=== PATIENT | female | born 1975 | race Caucasian/White ===

== ENCOUNTER → 2023-12-19 15:39 | Outpatient (REF) | payer OTHER, SELFPAY | LOC: WDC 15:39 | PROVIDERS: ATTENDING PHYSICIAN Family Medicine | DX: Z12.31 Encounter for screening mammogram for malignant neoplasm of breast (principal) | CPT/HCPCS: 77063; 77067 ==

== ENCOUNTER 2025-02-22 20:47 | Observation (INO) | payer OTHER, SELFPAY ==
[2025-02-22] VITALS (15 sets, daily range): BP systolic 106–141; BP diastolic 64–94; BMI 28.3; BMI 28.0
[2025-02-22 10:35] LABS: % Basophils 1.2 % (0-2); % Eosinophils 2.6 % (0-6); % Immature Granulocytes 0.3 % (0-0.5); % Lymphocytes 19.9 % (20.5-51.1); % Monocytes 6.9 % (1.7-9.3); % Neutrophils 69.1 % (42.2-75.2); Absolute Basophils 0.1 10^3/uL (0-0.2); Absolute Eosinophils 0.2 10^3/uL (0-0.7); Absolute Lymphocytes 1.2 10^3/uL (1.2-3.4); Absolute Monocytes 0.4 10^3/uL (0.1-0.6); Absolute Neutrophils 4.2 10^3/uL (1.4-6.5); Hemoglobin 14.7 g/dL (12.0-16.0); Mean Corpuscular Hgb 31.6 pg (27.0-31.0); Mean Corpuscular Volume 90.3 fL (81.0-99.0); Mean Platelet Volume 10.6 fL (7.4-10.4); Nucleated Red Blood Cells % 0 %; Platelet Count 214 10^3/uL (130-400); Red Blood Cell Count 4.65 10^6/uL (4.20-5.40); Red Cell Dist. Width 11.9 % (11.5-14.5); White Blood Cell Count 6.1 10^3/uL (4.8-10.8)
[2025-02-22 10:59] LABS: ALT (SGPT) 19 U/L (0-35); AST (SGOT) 25 U/L (14-36); Albumin 4.7 g/dl (3.5-5.0); Alkaline Phosphatase 43 U/L (38-126); Blood Urea Nitrogen 13 mg/dl (7-17); Calcium 10.3 mg/dl (8.4-10.2); Carbon Dioxide 25 mmol/L (22-30); Chloride 107 mmol/L (98-107); Glucose 127 mg/dl (70-99); Lipase 107 U/L (23-300); Potassium 4.4 mmol/L (3.5-5.1); Sodium 140 mmol/L (135-145); Total Bilirubin 0.6 mg/dl (0.2-1.3); Total Protein 7.6 g/dl (6.3-8.2); eGFR > 60.00
--- NOTE | 2025-02-22 12:08 | ED.GENMED ---
Addendum entered and electronically signed by Celine Chris NP 02/22/25 21:44:
CT report reviewed. Acute mild appendicitis. Dr. Mtz notified. Will admit to his service. NPO after midnight. IV zosyn started in dept. VSS, she remains afebrile. CT findings and plan discussed with patient, agreeable to plan.
Original Note:
History of Present Illness
General
Chief Complaint: Abdominal Pain
Source: patient
Exam Limitations: none
Time Seen by Provider: 02/22/25 11:10
Nursing documentation reviewed up to this point in time: agreed with
History of Present Illness
History of Present Illness:
49-year-old female asthmatic anxiety presents with
Phy Exam
Physical Exam
Physical Exam:
Physical Exam
General: no apparent distress, not acutely ill
Neck: No jaundice
Heart: s1/s2 regular rate and rhythm, no murmur. equal radial pulses.
Lungs: no acute respiratory distress. clear bilaterally
Abdomen: Mild epigastric and right upper quadrant
Neuro: alert and oriented. no focal neurological deficits
Skin: no rash
Psychiatric: well kept. interactive and cooperative
Extremities: no edema.
Course
Orders/Labs/Results
Orders:
Orders
02/22/25 10:22
Complete Blood Count/With Diff Urgent
Comprehensive Metabolic Panel Urgent
Lipase Urgent
02/22/25 11:33
Electrocardiogram (*1) Urgent
Reason for Study: Abdominal Pain
EKG- Treatment ONCE
0.9% Sodium Chloride 1000 ml [Nss] 1,000 ml IV BOLUS
Ketorolac [Toradol] 30 mg IV NOW STA
Ondansetron Injectable [Zofran] 4 mg IV NOW STA
US Abdomen Complete/Upper Urgent
Comment:
Reason For Exam: ruq pain
02/22/25 11:54
Troponin I Urgent
02/22/25 12:07
Urinalysis Reflex To Culture Urgent
Date Specimen was Collected: 02/22/25
Time Specimen was Collected: 11:56
02/22/25 14:12
CT Abd/pelvis W Iv Cont Urgent
Comment:
Reason For Exam: rlq pain
Abnormal Lab Results
02/22/25
10:22
MCH 31.6 H pg
(27.0-31.0)
MPV 10.6 H fL
(7.4-10.4)
Lymphocytes % 19.9 L %
(20.5-51.1)
Glucose 127 H mg/dl
(70-99)
Calcium 10.3 H mg/dl
(8.4-10.2)
02/22/25 10:22
02/22/25 10:22
Vital Signs
Initial and Last Documented VS:
Initial Vital Signs
Temp Pulse Resp BP Pulse Ox
98.2 F 95 16 137/94 100
02/22/25 09:59 02/22/25 09:59 02/22/25 09:59 02/22/25 09:59 02/22/25 09:59
Last Documented Vital Signs
Temp Pulse Resp BP Pulse Ox
98.5 F 82 12 136/81 99
02/22/25 12:08 02/22/25 12:08 02/22/25 12:08 02/22/25 12:08 02/22/25 12:08
MDM/Problems Addressed
Differential Diagnosis Includes:
Biliary colic pancreatitis ACS muscle strain doubt appendicitis
MDM/Problems Addressed:
Abdominal
*Radiology
Radiology exam reviewed: preliminary read by ED provider and radiology read reviewed
*EKG
Interpreted by ED Provider?: Yes
Interpretation: normal
Comparison EKG: no comparison EKG present
Heart Rate: 78
Rate: normal
Rhythm: sinus
QRS Pattern: normal QRS
Ischemia: non-specific ST changes
*Fire Boss Interpretation
Rate: normal
Interpretation: normal
Heart Rate: 78
Rhythm: sinus
*Critical Care Note
Total Time (30-74mins, 75-104mins- exclusive of procedures): Not Applicable
Update Note
Update Note:
215p--update EKG noted labs noted ultrasound noted patient still with some pain in the right abdomen perhaps a bit lower than it was earlier will check CT scan with IV contrast to rule out colitis, appendicitis or any other intra-abdominal pathology
did discuss with patient shared decision making, her scan may be negative
ED Attending Note
-
Portions of this chart may have been created with voice recognition software.� Occasional wrong word or��sound alike� substitutions may have occurred due to the inherent limitations of voice recognition software.
Discharge Plan
Departure
Prescriptions:
No Action
Albuterol Sulfate Hfa
1 - 2 inh inhalation Q4HPRN PRN (Reason: SOB)
paroxetine HCl [Paxil] 30 MG tablet
30 mg PO DAILY
aspirin 81 MG tablet,chewable
81 mg PO DAILY Qty: 14 0RF
Rx Instructions:
Take 81 mg daily for 14 days
Referrals:
Tianna Bledsoe PA [Family Provider, Family Practice]
Interventions
Interventions:
*Risk Screen - Suicide Last Done: 02/22/25 12:08
*General Assessment Last Done: 02/22/25 12:08
*Neglect/Abuse Screening Last Done: 02/22/25 12:08
*ED- Fall Risk Assessment Last Done: 02/22/25 12:08
*ED COVID-19 Vaccine History Last Done: 02/22/25 12:08
HA-Qhepuo-Gsocnjntax Assessment Last Done: 02/22/25 12:08
Discharge Date and Time
Print Language: MACEDONIAN
[2025-02-22 12:17] LABS: Urine Albumin Negative (Neg - Trace); Urine Bilirubin Negative (Negative); Urine Character Clear (Clear); Urine Color Yellow; Urine Glucose Negative (Negative); Urine Ketone Negative (Negative); Urine Leukocyte Negative (Negative); Urine Nitrite Negative (Negative); Urine Occult Blood Negative (Negative); Urine Specific Gravity 1.015 (<1.030); Urine Urobilinogen Negative (Neg - 1+)
[2025-02-22 12:57] LABS: Troponin I < 0.012 ng/ml
[2025-02-22] MEDS: ZOSYN 50 IV (17:08)
[2025-02-22] MEDS: ZOFRAN 4 MG IV (17:08)
[2025-02-22] MEDS: DILAUDID 0.5 MG IV ×2 (17:09→22:06)
--- NOTE | 2025-02-22 20:23 | HPS.HSE ---
Addendum entered and electronically signed by Gianluca Negro MD 02/23/25 08:12:
I saw and examined the patient independently.
The [employer] Machine Tender's note was reviewed and I agree with the note, assessment and plan except where noted below.
Comment: This is a 49-year-old female who presents with a 1 day history of umbilical then right lower quadrant abdominal pain. Exam, imaging, blood work all consistent with acute appendicitis.
Will plan for a laparoscopic appendectomy in the OR today.
N.p.o., IV fluids, IV antibiotics.
Risks/Benefits/Alternatives, expected postoperative course and possible complications (bleeding, infection, injury to surrounding structures, acute/chronic pain) discussed at length. Patient wishes to proceed with surgery. All questions answered.
Consent obtained.
I spent 60 minutes in total for the care of this patient today including direct patient care and counseling, reviewing labs, imaging, coordination of care, as well as documentation.
Original Note:
Family Physician
-
Family Physician: Tianna Bledsoe
Chief Complaint
-
Abdominal pain
History of Present Illness
Patient is a 49 year old female with a past medical history significant for Asthma (post Covid) and anxiety, who presents to the emergency department with abdominal pain. Patient states that the abdominal pain started yesterday afternoon and was
accompanied by slight nausea. The pain was severe overnight and she was unable to sleep during the night. She has had a poor appetite and little oral intake. Patient denies fever, chest pain, SOB, dizziness, weakness, or lightheadedness.
In the emergency department, labs unremarkable, vital signs stable, patient afebrile.
EKG shows NSR, HR 88.
Abdomen ultrasound showed: No sonographic evidence for an acute abnormality of the abdomen.
Abdomen/Pelvis CT showed: Mild acute appendicitis. No CT evidence for perforation or periappendiceal abscess.
Emergency provider discussed with Dr. Mtz, General surgery who is accepting the patient to his service for possible OR. Patient admitted to General Surgery. Plan: NPO, IV antibiotics, pain management and antiemetics.
Medical History
Past Medical History
Past Medical History: Reports Asthma (Post COVID) and Psychiatric (Anxiety)
Past Surgical History: Reports None
Social History
Tobacco: Non-smoker
Alcohol: Occasional
Drug: None
Personal:
Living: With Family
Family History
Family History: Not pertinent
Allergies / Home Medications
Allergies reflects when Allergies were last updated in [facility].
Home Medications with original date entered in [facility]
Allergy/Medication List:
Patient Allergies
Allergy/AdvReac Type Severity Reaction Status Date / Time
No Known Allergies Allergy Verified 02/22/25 09:59
Home Medications
�Medication �Instructions �Recorded
Albuterol Sulfate Hfa 1 - 2 inh inhalation Q4HPRN PRN SOB 12/10/20
paroxetine HCl 30 mg tablet (Paxil) 30 mg PO DAILY 12/10/20
Review of Systems
-
History Source: Patient
Constitutional: Reports Sleep Disturbance (Unable to sleep overnight due to abdominal pain)
EENT: Reports No Symptoms
Respiratory: Reports No Symptoms
Cardiac: Reports No Symptoms
Abdomen/GI: Reports Abdominal Pain and Nausea
: Reports No Symptoms
Musculoskeletal: Reports No Symptoms
Skin: Reports No Symptoms
Neurological: Reports No Symptoms
Endocrine: Reports No Symptoms
Hematologic/Lymphatic: Reports No Symptoms
Psych: Reports Calm
Physical Exam
Vital Signs
Vital Signs
Temp Pulse Resp BP Pulse Ox
98.5 F 82 12 124/91 99
02/22/25 12:08 02/22/25 19:15 02/22/25 19:15 02/22/25 19:00 02/22/25 19:22
Physical Exam
General: No Apparent Distress, Comfortable, Conversant and Poor Appetite
HEENT: Moist mucous membranes and PERRLA
Respiratory: Clear and Non Labored Respirations
Cardiac: S1/S2 and Regular Rhythm
GI: Soft, Non Distended, Normal Bowel Sounds and Tender (TTP, right lower quadrant)
Skin: Warm and Dry; No Jaundice
Neuro: Awake, Alert and Oriented
Psych: Calm and Intact Judgment/Insight
Laboratory Results
-
02/22/25 10:22
02/22/25 10:22
Laboratory Results
Total Bilirubin 0.6 mg/dl (0.2-1.3) 02/22/25 10:22
AST 25 U/L (14-36) 02/22/25 10:22
ALT 19 U/L (0-35) 02/22/25 10:22
Alkaline Phosphatase 43 U/L (38-126) 02/22/25 10:22
Troponin I < 0.012 ng/ml 02/22/25 11:54
Lipase 107 U/L (23-300) 02/22/25 10:22
Data Reviewed
-
CT Scan: Report Reviewed by me
Ultrasound: Report Reviewed by me
Lab Data: Labs Reviewed by me
Impression/Plan
-
IMPRESSION:
Patient is a 49 year old female with a past medical history significant for Asthma (post Covid) and anxiety, who presents to the emergency department with abdominal pain.
PLAN:
Acute Appendicitis
- CT Abd/Pelvis shows: Mild acute appendicitis. No CT evidence for perforation or periappendiceal abscess.
- Admit to General Surgery, Dr. Mtz
- NPO @ midnight, IV fluids: NSS 100 mls/hr
- IV antibiotics: Zosyn 3.375 g IV Q6H
- Pain medications, antiemetics
Anxiety
- Continue home medication: Paroxetine 30 mg daily
DVT prophylaxis: SCD/Teds pre op
Code Status: Full code
[2025-02-22] MEDS: NSS 1000 IV (22:08)
--- NOTE | 2025-02-22 22:15 | PTCARENOTE ---
Pt. admitted to 2S from ED via stretcher and able to walk to room bed with steady gait. In NAD but states her pain is starting to increase, even and unlabored breathing on RA, VSS, and a bit anxious about having surgery. All questions and concerns
addressed at time of assessment. Side rails in place, bed locked and in lowest position, and call robbins within reach.
[2025-02-23] MEDS: ZOSYN 50 IV ×3 (00:07→13:01)
[2025-02-23] MEDS: ZOFRAN 4 MG IV (00:09)
[2025-02-23] MEDS: DILAUDID 0.5 MG IV ×2 (00:10→10:35)
[2025-02-23] MEDS: TYLENOL 650 MG PO (06:40)
[2025-02-23 07:13] LABS: Hematocrit 42.6 % (37.0-47.0); Hemoglobin 14.7 g/dL (12.0-16.0); Mean Corp Hgb Conc. 34.5 g/dL (33.0-37.0); Mean Corpuscular Hgb 31.7 pg (27.0-31.0); Mean Platelet Volume 10.9 fL (7.4-10.4); Platelet Count 216 10^3/uL (130-400); Red Blood Cell Count 4.63 10^6/uL (4.20-5.40); Red Cell Dist. Width 11.9 % (11.5-14.5); White Blood Cell Count 6.8 10^3/uL (4.8-10.8)
[2025-02-23] MEDS: SYMBICORT 160/4.5 MCG INHALER 2 PUFF INH (07:25)
[2025-02-23 07:45] VITALS: BP 110/74
--- NOTE | 2025-02-23 08:11 | W.SUR.PREOP ---
Pre-Operative Surgical Note
-
I have examined this patient prior to the performance of the scheduled procedure.
The patient's condition is unchanged from the time of the current History and
Physical and the patient is able to undergo the scheduled procedure.
[2025-02-23 08:22] LABS: Blood Urea Nitrogen 9 mg/dl (7-17); Carbon Dioxide 23 mmol/L (22-30); Chloride 109 mmol/L (98-107); Estimated Creatinine Clearance 70 ml/min; Glucose 106 mg/dl (70-99); Potassium 3.9 mmol/L (3.5-5.1); Sodium 138 mmol/L (135-145); eGFR > 60.00
--- NOTE | 2025-02-23 10:04 | W.IMMPOSTOP ---
Surgical Immed Post Op Note
-
Primary Surgeon: Gianluca Negro MD
Assisting Surgeon: None
Pre-op Diagnosis: Acute appendicitis
Post-op Diagnosis: Same
Procedure Performed: Laparoscopic appendectomy
Anesthesia Type: General
Specimen / Cultures: Appendix
Estimated Blood Loss: 3 cc
Complications: None
Operative Findings: 5 mm x 3 laparoscopic appendectomy. Retrocecal mildly inflamed appendicitis. Base uninvolved and ligated with 0 PDS Endoloop x 2.
POST OP PLAN:
Imaging: None
Labs: Routine AM
Diet: Advance to Regular as tolerated
Analgesia: Tylenol 650mg q6 Gertrude, Amaris 5mg q6 PRN, Dilaudid 0.5mg q2h PRN
Neuro/vascular checks: q4h
AC/AP: Hold Therapeutic AC, Ok for DVT PPx
Activity: Ad Maryse
Wound/Incisions/Drains: Routine
Abx: None will continue antibiotics while in the hospital
Dispo: RNF, anticipate discharge later today.
--- NOTE | 2025-02-23 10:05 | OR.RPT ---
Operative Report
Operative Report
Patient Name: Nelly Adams
: 1975
Date of Operation: 02/23/2025
Preoperative Diagnosis: Acute Appendicitis
Postoperative Diagnosis: Same
Procedure(s):
Laparoscopic Appendectomy
Surgeon(s):
Dr. Negro
Account Manager [employer](s):
DELFINA Mccabe
Anesthesia: General
Estimated Blood Loss: 3 cc
Urine Output: None
Drains/Lines/Implants: None
Specimens:
1. Appendix
HPI/Surgical Indications:
This is a 49-year-old female who presents with a 1 day history of abdominal pain. Exam, labs and imaging are consistent with acute appendicitis. Risks/Benefits/Alternatives were discussed at length, and the patient agreed to proceed with surgery.
Operative Findings: 5 mm x 3 laparoscopic appendectomy. Retrocecal mildly inflamed appendicitis. Base uninvolved and ligated with 0 PDS Endoloop x 2.
Procedure Description:
The patient was placed in the supine position, with the left arm tucked, and general anesthesia was induced. The abdomen was prepared and draped in a sterile fashion so as to expose the entire abdomen. A surgical time out was taken. Abdominal access
was obtained with an 5 mm infra-umbilical Mohamud Entry. After confirming no injury on entrance, two additional 5mm ports were placed in the suprapubic area just off midline and in the left lower quadrant. The patient was placed in Trendelenberg with
the right slightly up . The appendix was identified and a window was created in the mesoappendix. The appendix was in a retrocecal location, inflamed but not perforated. Using a laparoscopic bipolar energy device, the appendix was dissected out of
the retrocecal location and the mesoappendix was divided. The base of the appendix appeared uninvolved and was ligated/divided using two 0-PDS Endoloops and the energy device. The appendix was placed in a specimen retrieval bag. Hemostasis was
confirmed and the ports were removed under visualization. The specimen was passed off the field. The umbilical port was closed with a [id number] 0-PDS and the skin for all three ports was closed with interrupted monocryls and covered with
dermabond. The patient was awoken from anesthesia in good condition and transported to the recovery area.
Zeynep was the attending physician and performed the procedure with assistance of the PA above. The assistance of DELFINA Mccabe was required due to the complexity of the procedure. During the procedure Livia assisted with retraction, resection, and
closure of the wound. During the procedure Livia assisted with port placement as well. I was present for all portions of the case, excluding skin closure.
Gianluca Negro MD
[2025-02-23 10:15] VITALS: BP 124/59
[2025-02-23 10:30] VITALS: BP 113/76
[2025-02-23 11:23] VITALS: BP 116/78
[2025-02-23] MEDS: NSS IV (12:57)
[2025-02-23] MEDS: PAXIL 30 MG PO (12:58)
--- NOTE | 2025-02-23 13:20 | CM ---
Initial assessment completed with patient who lives with her in a 2 story home plus basement with B/B on 2nd and 1/2 bath on 1st, 2 steps to enter. 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 She does drive. No DME. Mo service. No HC-POA.
PCP is Dr. Tianna Bledsoe and Pharmacy is [facility] in [place]. Discharge POC: Home with no needs.
--- NOTE | 2025-02-23 13:34 | CM ---
Patient has been medically cleared for discharge to home with no additional skilled services. will transport home.
[2025-02-23] MEDS: ULTRAM 50 MG PO (15:45)
[2025-02-23 15:47] VITALS: BP 132/83
== END 2025-02-23 16:20 | disposition home or self-care (01) ==
LOC: 2 SOUTH 20:47
PROVIDERS: Nurse Practitioner Family; ADMITTING PHYSICIAN Surgery; EMERGENCY PHYSICIAN Emergency Medicine; FAMILY PHYSICIAN Family Medicine
DX: K35.80 Unspecified acute appendicitis (principal); R10.9 Unspecified abdominal pain; J45.909 Unspecified asthma, uncomplicated; F41.9 Anxiety disorder, unspecified; Z79.82 Long term (current) use of aspirin; Z79.51 Long term (current) use of inhaled steroids; Z86.16 Personal history of COVID-19; Z79.899 Other long term (current) drug therapy
CPT/HCPCS: 44970; 88304; 74177; 76700; 80048; 80053; 81003; 83690; 84484; 85025; 85027; 93005; 94640; 96365; 96375; 99285; C1776; G0378; Q9967